=== PATIENT | female | born 1990 | race Asian ===

== ENCOUNTER 2017-03-26 08:45 | Emergency (ER) | payer BC ==
[2017-03-26 08:53] VITALS: BP 100/75; PULSE 86; RESP 16; TEMP 97.9; O2SAT 98
--- NOTE | 2017-03-26 09:29 | EDPHY ---
H & P Time Seen by Provider: 03/26/17 09:00 HPI/ROS: CHIEF COMPLAINT: Rash HISTORY OF PRESENT ILLNESS: 27-year-old female presents with a rash. 1 week ago she started taking iron supplementation. Yesterday she developed an itchy rash on her torso and legs. She took Benadryl with some relief. This morning the rash continues and is itchy. She had transient shortness of breath became concerned about a serious allergic reaction. She is not short of breath now. REVIEW OF SYSTEMS: Constitutional: No fever Eyes: No swelling ENT: No oral swelling Respiratory: No cough Cardiac: No chest pain Gastrointestinal: no vomiting, no abdominal pain Genitourinary: no dysuria Musculoskeletal: No leg pain or swelling Neurological: No headache Psychiatric: No depression Past Medical/Surgical History: Denies Smoking Status: Never smoked Physical Exam: General Appearance: Alert, pleasant Eyes: Pupils equal and round, no periorbital swelling ENT, Mouth: Mucous membranes moist, no oral swelling Neck: Normal inspection, no stridor Respiratory: Lungs are clear to auscultation, no wheezing Cardiovascular: Regular rate and rhythm Neurological: A&O, nonfocal, normal gait Skin: Few scattered hives Extremities: No swelling Psychiatric: Mood and affect normal Constitutional: Initial Vital Signs Temperature (C) 36.6 C 03/26/17 08:50 Heart Rate 86 03/26/17 08:50 Respiratory Rate 16 03/26/17 08:50 Blood Pressure 100/75 03/26/17 08:50 O2 Sat (%) 98 03/26/17 08:50 O2 Delivery Mode Room Air Allergies/Adverse Reactions: No Known Allergies Allergy (Unverified 03/26/17 08:49) Home Medications: Medication Instructions Recorded BENADRYL 03/26/17 Medical Decision Making ED Course/Re-evaluation: This patient presents with urticaria, most likely secondary to iron supplementation. She will stop taking this medication. She will take antihistamines until the rash resolves. I do not feel that steroids are indicated in this patient. Differential Diagnosis: Differential diagnosis includes though it is not limited to laryngeal edema, bronchospasm, hypotension, angioedema. Departure - Departure Disposition: Home, Routine, Self-Care Clinical Impression: Urticaria Condition: Good Instructions: Urticaria (ED) Additional Instructions: Take Claritin in the morning and Benadryl at night while the rash persists. Return for worsening symptoms or any concerns. Referrals: Richie Singer MD [Medical Doctor] - As per Instructions
== END 2017-03-26 09:45 | disposition home or self-care (01) ==
DX: L50.9 Urticaria, unspecified (principal)